=== PATIENT | male | born 1970 | race Caucasian/White ===

== ENCOUNTER 2020-05-19 06:45 | Outpatient (CLI) | payer BC, OTHER ==
[2020-05-19 18:06] LABS: Anion Gap 14 mmol/L (10-20); BUN (Urea Nitrogen) 16 mg/dL (8.9-20.6); Calc. Creatinine Clearance 0 mL/min (70-130); Calcium 9.8 mg/dL (7.8-10.44); Carbon Dioxide 26 mmol/L (22-29); Chloride 104 mmol/L (98-107); Estimated GFR-MDRD 60; Glucose 106 mg/dL (70-105); Potassium 4.3 mmol/L (3.5-5.1); Sodium 140 mmol/L (136-145)
[2020-05-20 13:06] LABS: SARS-CoV-2 MS2 Positive; SARS-CoV-2 N Gene Negative; SARS-CoV-2 S Gene Negative; SARS-CoV-2 orf1ab Negative
== END 2020-05-19 06:46 | disposition home or self-care (01) ==
LOC: LABBT 06:45
PROVIDERS: ATTEND Surgery
DX: Z01.812 Encounter for preprocedural laboratory examination (principal); Z11.59 Encounter for screening for other viral diseases; D03.59 Melanoma in situ of other part of trunk; D03.72 Melanoma in situ of left lower limb, including hip; D17.24 Benign lipomatous neoplasm of skin and subcutaneous tissue of left leg
CPT/HCPCS: 80048; 87635; U0003

== ENCOUNTER 2020-05-23 07:07 | Day surgery (SDC) | payer BC ==
[2020-05-18 09:45] VITALS: BMI 35.5
[2020-05-23] MEDS ORDERED: Fentanyl 250 MCG/5 ML VIAL ONE (09:05)
[2020-05-23] MEDS ORDERED: Bupivacaine 0.25% HCL 30 ML VIAL ONE (09:09)
[2020-05-23] MEDS ORDERED: Lidocaine 1% w/Epinephrine 1:100K 20 ML VIAL ONE (09:09)
[2020-05-23] MEDS ORDERED: Lidocaine 1% PF 5 ML VIAL ONE (14:56)
[2020-05-23] MEDS ORDERED: Rocuronium Bromide 10 MG/ML (10ML VIAL) ONE (14:56)
[2020-05-23] MEDS ORDERED: EPHEDRINE 25 MG/5 ML SYRINGE ONE (14:56)
[2020-05-23] MEDS ORDERED: Dexamethasone 20 MG/5 ML VIAL ONE (14:56)
[2020-05-23] MEDS ORDERED: PROPOFOL 200 MG/20 ML VIAL ONE (14:56)
[2020-05-23] MEDS ORDERED: Glycopyrrolate 0.2 MG/ML 5 ML SYRINGE ONE (14:56)
[2020-05-23] MEDS ORDERED: Ondansetron PF 4 MG/2 ML Vial ONE (14:56)
--- NOTE | 2020-05-24 13:02 | OP ---
DATE OF PROCEDURE: 05/23/2020 PREOPERATIVE DIAGNOSES: 1. Malignant melanoma, left posterior thigh. 2. Malignant melanoma, anterior chest. 3. Soft tissue mass, left posterior thigh. PROCEDURES PERFORMED: 1. Wide local excision of melanoma, chest, 3 cm in diameter excision. 2. Complex layered closure, 9 cm in length, chest. 3. Wide local excision of malignant melanoma, left posterior leg, 3 cm in greatest diameter. 4. Complex layered closure, 9 cm in length incision, left posterior leg. 5. Soft tissue mass excision, left leg, 1 cm. ANESTHESIA: General. ESTIMATED BLOOD LOSS: Minimal. COMPLICATIONS: None. SPECIMENS: Each specimen marked with 2 short superior and 1 long lateral and sent to Path for final diagnosis. 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 DESCRIPTION OF PROCEDURE: Mr. Etienne was taken to the operating room and laid supine on the operating room table. After general anesthetic was obtained, he was placed in the prone position. The posterior left upper thigh was shaved, prepped, and draped in a sterile fashion. An elliptical incision was made and it is 3 cm in diameter and 9 cm in length. Cautery was used to dissect down to the fascia. A full-thickness down to fascia excisional wound was made. The specimen was marked with 2 short superior and 1 long lateral and sent to Path for final diagnosis. Soft tissue mass was removed en bloc with this on the medial side. Extensive undermining was performed circumferentially to facilitate closure. The wound was irrigated. Local anesthetic was applied. The deep tissues were closed using 3-0 Vicryl. The subcutaneous sutures are closed using running 4-0 Monocryl and Dermabond was used on the skin as well. Next. The patient was then placed in the supine position and the upper chest and upper abdomen and lower chest were shaved, prepped, and draped in a sterile fashion. A 3 cm in diameter and 9 cm in length elliptical incision was made transversely to remove previous melanoma shave biopsy, taken down to fascia. The specimen was marked with 2 short superior and 1 long lateral and sent to Path for final diagnosis. Extensive undermining was performed circumferentially to facilitate closure without tension. The wound was irrigated. Local anesthetic was applied. The wound was closed using 3-0 Vicryl, 4-0 Monocryl, and Dermabond. The patient was sent to Recovery in stable condition. All instrument counts, needle counts, and lap counts were correct. Job ID: [id number]
== END 2020-05-23 12:23 | disposition home or self-care (01) ==
LOC: SDC 07:07
PROVIDERS: ATTEND Surgery
PROC: 0HBJXZZ Excision of Left Upper Leg Skin, External Approach (ICD-10-PCS; principal; 2020-05-23)
PROC: 0HB5XZZ Excision of Chest Skin, External Approach (ICD-10-PCS; principal; 2020-05-23)
DX: C43.72 Malignant melanoma of left lower limb, including hip (principal); C43.59 Malignant melanoma of other part of trunk
CPT/HCPCS: 88305; 88342; J0690; J1100; J2405; J2704; J3010; S0020